=== PATIENT | male | born 1955 | race Caucasian/White ===

== ENCOUNTER 2018-08-10 09:40 | Outpatient (REF) | payer BC, SELFPAY ==
[2018-08-10 13:53] LABS: ALT 28 U/L (12-78); AST 13 U/L (15-37); Albumin 3.6 g/dL (3.4-5.0); Alkaline Phosphatase 52 U/L (46-116); BUN 17 mg/dL (7-18); Bilirubin, Total 0.5 mg/dL (0.2-1.0); CREATININE 1.14 mg/dL (0.70-1.30); Chloride 103 mmol/L (98-107); Cholesterol 191 mg/dL (50-200); Glucose 120 mg/dL (70-100); HDL Cholesterol 38 mg/dL (40-60); LDL CHOLESTEROL 123 mg/dL (<100); Potassium 3.9 mmol/L (3.5-5.1); Sodium 140 mmol/L (136-145); Total Protein 6.5 g/dL (6.4-8.2); Triglyceride 195 mg/dL (30-150)
[2018-08-13 11:14] LABS: PSA, Screening 1.6 ng/ml (0-4.5)
== END 2018-08-10 10:00 ==
LOC: NCHCN 09:40
PROVIDERS: PCP Family Medicine; Visit Provider Family Medicine
DX: Z00.00 Encounter for general adult medical examination without abnormal findings (principal); R73.9 Hyperglycemia, unspecified; E78.1 Pure hyperglyceridemia; I10 Essential (primary) hypertension; Z12.5 Encounter for screening for malignant neoplasm of prostate
CPT/HCPCS: 80053; 80061; 83721; 84153

== ENCOUNTER 2018-09-12 14:36 | Outpatient (CLI) | payer BC, SELFPAY ==
--- NOTE | 2018-09-12 14:33 | DI.RAD_ITS ---
SYMPTOM/DIAGNOSIS: RT SHOULDER PAIN RIGHT SHOULDER: Comparison is made with 23 April 2013. There is spurring at the A-C joint and tip of the acromion as well as glenoid. There is mild spurring at the greater tuberosity. The humeral head appears normally positioned. IMPRESSION: Mild to moderate degenerative changes.
== END 2018-09-12 14:56 ==
PROVIDERS: PCP Family Medicine; Visit Provider Student in an Organized Health Care Education/Training Program
DX: M25.511 Pain in right shoulder (principal); M19.011 Primary osteoarthritis, right shoulder
CPT/HCPCS: 73030

== ENCOUNTER 2018-10-26 11:10 | Outpatient (CLI) | payer BC, SELFPAY ==
--- NOTE | 2018-10-26 10:44 | DI.RAD_ITS ---
SYMPTOM/DIAGNOSIS: COUGH, R05 PA AND LATERAL CHEST: No priors. The heart is normal in size. The lungs are clear. The mediastinal structures and pleura appear intact. CONCLUSION: Normal chest.
== END 2018-10-26 11:30 ==
PROVIDERS: PCP Family Medicine; Visit Provider Nurse Practitioner
DX: R05 Cough (principal)
CPT/HCPCS: 71046

== ENCOUNTER 2018-10-29 15:59 | Outpatient (CLI) | payer BC, SELFPAY ==
[2018-10-29 17:28] LABS: Abs Immature Grans 0.05 k/cumm (0.0-0.09); Absolute Basophil Count 0.05 k/cumm (0.0-0.2); Absolute Eosinophil Count 0.41 k/cumm (0.0-0.7); Absolute Lymphocyte Count 2.12 k/cumm (1.2-3.4); Absolute Monocyte Count 0.65 k/cumm (0.11-0.7); Absolute Neutrophil Count 5.25 k/cumm (1.2-6.7); Basophils % 0.6; Eosinophils % 4.8; HGB 15.7 g/dL (13.5-17.5); Immature Grans % 0.6; Lymphocytes % 24.9; Mean Corp. HGB Concentration 34.9 g/dL (32.0-36.0); Mean Corpuscular Hemoglobin 32.3 pg (27.0-33.0); Mean Corpuscular Volume 92.6 fL (80-95); Mean Platelet Volume 10.1 fL (8.0-11.0); Monocytes % 7.6; Neutrophils % 61.5; Platelet Count 230 x1000/uL (130-400); RBC 4.86 m/cumm (4.50-6.00); RBC Distribution Width 12.5 % (11.8-14.1); White Blood Cell Count 8.53 k/cumm (4.4-10.8)
[2018-10-29 19:37] LABS: D-Dimer 242 ng/mlFEU (<500)
== END 2018-10-29 16:19 ==
PROVIDERS: PCP Family Medicine; Visit Provider Family Medicine
DX: R05 Cough (principal)
CPT/HCPCS: 36415; 85025; 85379

== ENCOUNTER 2018-12-20 01:24 | Outpatient (CLI) | payer BC, SELFPAY ==
--- NOTE | 2018-12-20 07:01 | DI.RAD_ITS ---
SYMPTOMS/DIAGNOSIS: RIGHT ROTATOR CUFF TENDINITIS, M75.81 JOINT INJECTION, RIGHT SHOULDER: Fluoroscopy Time: 4 sec Fluoroscopy was utilized by Dr. Palma during the performance of a right shoulder injection. No images were saved. Please refer to the procedure report for complete details.
--- NOTE | 2018-12-20 10:05 | W.PROCNOTE ---
Date of service: 12/20/18 Time of Service: 10:05 Procedure Note Date of procedure: 12/20/18 Procedure: Right Shoulder Injection Surgeon/Proceduralist/Physician: Quang Palma Procedure Diagnosis: Right Biceps Tendinitis Procedure Indications: Patrice has had persistent pain of the RIGHT shoulder. Noninvasive measures have been tried. To serve as both diagnostic and therapeutic, an injection under fluoroscopy was recommended. I had discussed the risks of the procedure and the patient elected to proceed. Procedure Description: Patrice was greeted in the flouroscopy room. The correct side was identified and the consent was reviewed with the patient and signed. The patient was then placed in the supine position on the fluoroscopy table. The RIGHT shoulder was then prepped with Chloraprep. The anterior injection starting point was identiifed by bony landmarks and fluoroscopy. The skin and soft tissue in the tract of the injection was anesthetized with 1% Lidocaine. A spinal needle was then inserted deep into the shoulder joint at the level of the recess between the glenoid and superior humeral head. A small amount of Omnipaque solution was injected to confirm intraarticular placement. Once confirmed, the shoulder was injected with 4cc of 0.5% Bupivicaine and 80mg of Depo-Medrol. A bandaid was placed on the injection site. The patient tolerated the procedure well and noted improvement in pre-injection pain.
[2018-12-20] MEDS: Omnipaque 300 MG/ML 10 ML BTL IJ (12:08)
[2018-12-20] MEDS: Bupivacaine 0.5% Pres-Free 10 ML VIAL 6 ML IJ (12:09)
[2018-12-20] MEDS: methylPREDNISolone ACETATE 80 MG/ML VIAL IM (12:10)
== END 2018-12-20 01:44 ==
PROVIDERS: PCP Family Medicine; Visit Provider Student in an Organized Health Care Education/Training Program
DX: M25.511 Pain in right shoulder (principal); M75.81 Other shoulder lesions, right shoulder
CPT/HCPCS: 20610; 77002; 76000; J1040

== ENCOUNTER 2019-02-22 10:30 | Outpatient (REF) | payer BC, SELFPAY ==
--- NOTE | 2019-02-22 09:50 | SKI_PTH ---
PATIENT: Patrice Nice LOC: N U#:[id number] AGE/SX: 63/M ROOM: RE02/22/[address]: Sheryl Lee MD : 1955 BED: DIS: 02/22/2019 SPEC #: [id number] RECD: 02/22/19 12:25 STATUS: CHRIS REThomas #: [id number] GEORGI: 02/22/19 09:[address]: Sheryl Lee DEPT: Surgical Specimen RECD BY: Desiree Tim ENTERED: 02/22/19 12:26 SP TYPE: AMADO MARMOLEJO DR: Eugenia Mcclure Tissues: 1 - SKIN CYST/TAG/DEBRIDEMENT Procedures: SKIN BIOPSY LEVEL 3 Comments: [id number]
== END 2019-02-22 10:50 ==
LOC: LBN 10:30
PROVIDERS: PCP Family Medicine; Visit Provider Surgery
DX: L72.0 Epidermal cyst (principal)
CPT/HCPCS: 88304

== ENCOUNTER 2019-04-04 01:03 | Outpatient (CLI) | payer BC, SELFPAY ==
--- NOTE | 2019-04-04 07:12 | DI.RAD_ITS ---
SYMPTOM/DIAGNOSIS: LT HIP INJECTION , PRIMARY OA LT HIP M16.12 LEFT HIP INJECTION : 04/04/19 Fluoroscopy Time: .3 min Left hip injection. Hard copy shows left intra-articular hip injection.
[2019-04-04] MEDS: Omnipaque 300 MG/ML 10 ML BTL IJ (09:58)
[2019-04-04] MEDS: Bupivacaine 0.5% Pres-Free 10 ML VIAL 6 ML IJ (09:59)
[2019-04-04] MEDS: methylPREDNISolone ACETATE 80 MG/ML VIAL IM (10:00)
--- NOTE | 2019-04-05 09:47 | W.PROCNOTE ---
Date of service: 04/04/19 Time of Service: 11:47 Procedure Note Date of procedure: 04/04/19 Procedure: Left Hip Injection with Fluoroscopic Guidance Surgeon/Proceduralist/Physician: Quang Palma Procedure Diagnosis: Left Hip Osteoarthritis Procedure Indications: Patrice has had persistent pain of the LEFT hip and groin. Noninvasive measures have been tried. He had a previous left hip injection which provided significant relief. Therefore, an injection under fluoroscopy was recommended. I had discussed the risks of the procedure and the patient elected to proceed. Procedure Description: Patrice was greeted in the flouroscopy room. The correct side was identified and the consent was reviewed with the patient and signed. The patient was then placed in the supine position on the fluoroscopy table. The LEFT hip was then prepped with Chloraprep. The anterolateral injection starting point was identiifed by bony landmarks and fluoroscopy. The skin and soft tissue in the tract of the injection was anesthetized with 1% Lidocaine. A spinal needle was then inserted deep into the hip joint at the level of the lateral femoral neck under fluoroscopic guidance. A small amount of Omnipaque solution was injected to confirm intraarticular placement. Once confirmed, the hip was injected with 6cc of 0.5% Bupivicaine and 80mg of Depo-Medrol. A bandaid was placed on the injection site. The patient tolerated the procedure well and noted improvement in pre-injection pain.
== END 2019-04-04 01:23 ==
PROVIDERS: PCP Family Medicine; Visit Provider Student in an Organized Health Care Education/Training Program
DX: M16.12 Unilateral primary osteoarthritis, left hip (principal); M25.552 Pain in left hip
CPT/HCPCS: 20610; 77002; J1040

== ENCOUNTER 2019-04-18 00:40 | Outpatient (CLI) | payer BC, SELFPAY ==
--- NOTE | 2019-04-18 07:00 | DI.RAD_ITS ---
SYMPTOM/DIAGNOSIS: RT ROTATOR CUFF TENDINITIS, M75.81, RT SHOULDER INJECTION RIGHT SHOULDER INJECTION: Fluoroscopy Time: 12.4 seconds Fluoroscopy was utilized by Dr Palma during the performance of a right shoulder injection. Please refer to the procedure report for complete details. A single hard copy image shows contrast which confirms an intra-articular location.
--- NOTE | 2019-04-18 09:27 | W.PROCNOTE ---
Date of service: 04/18/19 Time of Service: 09:27 Procedure Note Date of procedure: 04/18/19 Procedure: Right Shoulder Injection Surgeon/Proceduralist/Physician: Quang Palma Procedure Diagnosis: Right Rotator Cuff Tendinitis Procedure Indications: Patrice has had persistent pain of the RIGHT shoulder. Noninvasive measures have been tried. To serve as both diagnostic and therapeutic, an injection under fluoroscopy was recommended. He has had a previous injection with great, longlasting success. I had discussed the risks of the procedure and the patient elected to proceed. Procedure Description: Patrice was greeted in the flouroscopy room. The correct side was identified and the consent was reviewed with the patient and signed. The patient was then placed in the supine position on the fluoroscopy table. The RIGHT shoulder was then prepped with Chloraprep. The anterior injection starting point was identiifed by bony landmarks and fluoroscopy. The skin and soft tissue in the tract of the injection was anesthetized with 1% Lidocaine. A spinal needle was then inserted deep into the shoulder joint at the level of the recess between the glenoid and superior humeral head. A small amount of Omnipaque solution was injected to confirm intraarticular placement. Once confirmed, the shoulder was injected with 4cc of 0.5% Bupivicaine and 80mg of Depo-Medrol. A bandaid was placed on the injection site. The patient tolerated the procedure well and noted improvement in pre-injection pain.
[2019-04-18] MEDS: Omnipaque 300 MG/ML 10 ML BTL IJ (10:39)
[2019-04-18] MEDS: methylPREDNISolone ACETATE 80 MG/ML VIAL IM (10:40)
[2019-04-18] MEDS: Bupivacaine 0.5% Pres-Free 10 ML VIAL 6 ML IJ (10:40)
== END 2019-04-18 01:00 ==
PROVIDERS: PCP Family Medicine; Visit Provider Student in an Organized Health Care Education/Training Program
DX: M75.81 Other shoulder lesions, right shoulder (principal); M25.511 Pain in right shoulder
CPT/HCPCS: 20610; 77002; J1040

== ENCOUNTER 2019-08-14 10:27 | Outpatient (REF) | payer BC, SELFPAY ==
[2019-08-14 13:19] LABS: ALT 38 U/L (16-63); AST 15 U/L (15-37); Albumin 3.8 g/dL (3.4-5.0); Alkaline Phosphatase 53 U/L (46-116); Anion Gap 7.1 mmol/L (3-11); BUN 19 mg/dL (7-18); Bilirubin, Total 0.7 mg/dL (0.2-1.0); CO2 30.9 mmol/L (21.0-32.0); CREATININE 1.03 mg/dL (0.70-1.30); Calculated LDL 120 mg/dL; Chloride 104 mmol/L (98-107); Cholesterol 191 mg/dL (50-200); Glucose 109 mg/dL (70-100); HDL Cholesterol 37 mg/dL (40-60); Potassium 3.7 mmol/L (3.5-5.1); Sodium 142 mmol/L (136-145); Total Protein 6.8 g/dL (6.4-8.2); Triglyceride 174 mg/dL (30-150)
[2019-08-15 11:30] LABS: Hepatitis A Antibody IgM Negative (NEGAT); Hepatitis B Core Antibody Negative (NEGAT); Hepatitis B surface Ag Negative (NEGAT); Hepatitis C Ab w Rflx HCV PCR Negative (NEGAT)
== END 2019-08-14 10:47 ==
LOC: NCHCN 10:27
PROVIDERS: Visit Provider Family Medicine
DX: Z00.00 Encounter for general adult medical examination without abnormal findings (principal); E78.1 Pure hyperglyceridemia; I10 Essential (primary) hypertension; Z12.5 Encounter for screening for malignant neoplasm of prostate; Z11.59 Encounter for screening for other viral diseases
CPT/HCPCS: 80053; 80061; 84153; 86704; 86709; 86803; 87340

== ENCOUNTER 2020-06-25 01:15 | Outpatient (CLI) | payer BC, SELFPAY ==
[2020-06-25] MEDS: Omnipaque 300 MG/ML 10 ML BTL IJ (14:20)
--- NOTE | 2020-06-25 14:20 | DI.RAD_ITS ---
EXAM: RF JOINT INJECTION FLUORO GUID CLINICAL HISTORY: DJD LEFT HIP-INJECTION,OA LT HIP TECHNIQUE: COMPARISON: No exams were available for comparison FINDINGS: Fluoroscopy was utilized by Dr. Palma during left hip injection. Hard copy shows successful hip i njection. Fluoro time, 0.08 seconds IMPRESSION: RADIATION DOSE DELIVERED: Total DLP
[2020-06-25] MEDS: methylPREDNISolone ACETATE 80 MG/ML VIAL IM (14:21)
[2020-06-25] MEDS: Bupivacaine 0.5% Pres-Free 10 ML VIAL 6 ML IJ (14:21)
--- NOTE | 2020-06-25 16:13 | W.PROCNOTE ---
Date of service: 06/25/20 Time of Service: 14:13 Procedure Note Date of procedure: 06/25/20 Procedure: Left Hip Injection with Fluoroscopic Guidance Surgeon/Proceduralist/Physician: Quang Palma Procedure Diagnosis: Left Hip Osteoarthritis Procedure Indications: Patrice has had persistent pain of the LEFT hip and groin. Noninvasive measures have been tried. He has had previous injections to the left hip with excellent results. Therefore, an injection under fluoroscopy was recommended. I had discussed the risks of the procedure and the patient elected to proceed. Procedure Description: Patrice was greeted in the flouroscopy room. The correct side was identified and the consent was reviewed with the patient and signed. The patient was then placed in the supine position on the fluoroscopy table. The LEFT hip was then prepped with Chloraprep. The anterolateral injection starting point was identiifed by bony landmarks and fluoroscopy. The skin and soft tissue in the tract of the injection was anesthetized with 1% Lidocaine. A spinal needle was then inserted deep into the hip joint at the level of the lateral femoral neck under fluoroscopic guidance. A small amount of Omnipaque solution was injected to confirm intraarticular placement. Once confirmed, the hip was injected with 6cc of 0.5% Bupivicaine and 80mg of Depo-Medrol. A bandaid was placed on the injection site. The patient tolerated the procedure well and noted improvement in pre-injection pain.
== END 2020-06-25 01:35 ==
PROVIDERS: PCP Family Medicine; Visit Provider Student in an Organized Health Care Education/Training Program
DX: M16.12 Unilateral primary osteoarthritis, left hip (principal); M25.552 Pain in left hip; R10.32 Left lower quadrant pain
CPT/HCPCS: 20610; 77002; J1040

== ENCOUNTER 2020-08-19 08:52 | Outpatient (REF) | payer BC, SELFPAY ==
[2020-08-19 22:39] LABS: ALT 26 U/L (16-63); AST 13 U/L (15-37); Albumin 3.9 g/dL (3.4-5.0); Alkaline Phosphatase 55 U/L (46-116); Anion Gap 8.9 mmol/L (3-11); BUN 15 mg/dL (7-18); Bilirubin, Total 0.6 mg/dL (0.2-1.0); CO2 28.1 mmol/L (21.0-32.0); CREATININE 1.18 mg/dL (0.70-1.30); Calcium 8.9 mg/dL (8.5-10.1); Calculated LDL 116 mg/dL (<100); Chloride 104 mmol/L (98-107); Cholesterol 181 mg/dL (<200); Glucose 124 mg/dL (74-106); HDL Cholesterol 36 mg/dL (40-60); Potassium 3.8 mmol/L (3.5-5.1); Sodium 141 mmol/L (136-145); Total Protein 6.7 g/dL (6.4-8.2); Triglyceride 148 mg/dL (<150)
[2020-08-24 15:58] LABS: PSA, Screening 2.8 ng/mL (0-4.5)
== END 2020-08-19 09:12 ==
LOC: NCHCN 08:52
PROVIDERS: PCP Family Medicine; Visit Provider Family Medicine
DX: R73.03 Prediabetes (principal); Z00.00 Encounter for general adult medical examination without abnormal findings; E78.1 Pure hyperglyceridemia; I10 Essential (primary) hypertension; E66.3 Overweight
CPT/HCPCS: 80053; 80061; 84153

== ENCOUNTER → 2020-11-05 13:29 | Outpatient (BNVA) | payer MEDICARE, BC, SELFPAY | PROVIDERS: PCP Family Medicine; Referring Provider Family Medicine; Visit Provider Physical Therapy Assistant | DX: Z12.11 Encounter for screening for malignant neoplasm of colon (principal); Z86.010 Personal history of colon polyps ==

== ENCOUNTER 2020-11-19 02:36 | Outpatient (CLI) | payer MEDICARE, BC, SELFPAY ==
[2020-11-20 13:18] LABS: COVID-19 RT-PCR UVMMC Result Negative (Negative)
== END 2020-11-19 02:37 | disposition home or self-care (01) ==
PROVIDERS: PCP Family Medicine; Visit Provider Surgery
DX: Z20.822 Contact with and (suspected) exposure to COVID-19 (principal); Z01.818 Encounter for other preprocedural examination
CPT/HCPCS: U0003; U0005

== ENCOUNTER 2020-11-23 07:11 | Day surgery (SDC) | payer MEDICARE, BC, SELFPAY ==
--- NOTE | 2020-11-23 06:46 | COLE_ITS ---
Date of service: 11/23/20 Time of Service: 08:32 Colonoscopy Report Date of procedure: 11/23/20 Pre-op diagnosis general: Hx of colon polyps Post-op diagnosis procedure note: same (10 polyps and diverticulosis) Procedure: Colonoscopy with polypectomy Surgeon: Sheryl eLe Anesthesia proc note operative: other (General/ASA 2/Erasto Hogan, DONNA) Estimated blood loss (mL): 5 Pathology: other (Ascending polyps x2, transverse polyp x5, descending polyp x2, sigmoid polyp) Complications: None Disposition: same day Indications: The patient is here for Colonoscopy pre-op. His last screening was in 2017, which was remarkable for tubular adenomatous polyps x 5 and tubulovillious x 1. He has no family history of colon cancer. He has not had any bowel habit changes. -Discussed colonoscopy bowel prep as well as the procedure. Discussed possible complications of the procedure to include bleeding, pain, perforation, missed small lesion/polyp, sore throat, aspiration and adverse reaction to the medications. Questions were answered to patient?s satisfaction. No guarantees were implied or given. I spent 32 minutes in reviewing the record, seeing the patient, providing patient education, answering patient's questions and documenting in the medical record. He will hold his aspirin, Aleve, ibuprofen, and calcium x 5 days prior to his procedure. P// Colonoscopy under sedation Prep: Miralax/Dulcolax Procedure Start Time: 08:32 Procedure End Time: 09:44 Retraction Time: 60 minutes Findings: Multiple flat and pedunculated polyps throughout his large bowel moderate sigmoid diverticulosis Procedure Description: After informed consent was obtained the patient was taken to the procedure room and placed in a left decubitous position. Monitors were applied and a time out was done. The patients name, date of , proce dure, allergies to medications and metal in their body was reviewed. The patient was then sedated. Once sedated and comfortable a rectal exam was done. External exam was normal. Internal exam revealed a normal sphincter tone and no palpable masses. The prostate felt smooth. The scope was then introduced and retro-flexed. No internal hemorrhoids, polyps or masses were identified on retro-flexion. The scope was then advanced to the cecum without difficulty. The ileocecal vlave and appendiceal orifice were identified. The prep was adequate. The scope was then slowly retracted over 60 minutes back into the rectum. Polyps were removed with cold forceps in the ascending colon, Transverse colon, descending colon, and sigmoid colon. Polyps were removed x3 with hot snare in the Transverse colon polyp. There was moderate diverticulosis in the sigmoid colon noted. The scope was removed and the patient was woken up and taken back to Same day surgery in stable condition. The patient tolerated the procedure well and there were no immediate complications. Follow up: The patient should follow up in 3 years unless they develop changes in bowel habits or other new gastrointestinal complaints.
--- NOTE | 2020-11-23 06:47 | W.PM.DSUDISC ---
Discharge Plan Disposition Patient Disposition: HOME Condition: Good Discharge Details Reason For Visit: Colonoscopy Attending Provider: Sheryl Lee Primary Care Provider: Eugenia Mcclure Home Meds and New Rx's Prescriptions: Continued losartan 100 mg tablet 100 mg PO DAILY RF: 0 glucosamine-chondroitin 900 mg tablet 900 mg PO DAILY RF: 0 hydrochlorothiazide 25 MG tablet 25 mg PO DAILY RF: 0 naproxen sodium [Aleve] 220 MG tablet 440 mg PO Q12H PRN RF: 0 sildenafil [Viagra] 100 MG tablet 100 mg PO PRN PRNRF: 0 ibuprofen 200 mg tablet 200 mg PO Q6H PRNRF: 0 diphenhydramine-acetaminophen [Tylenol PM Extra Strength] 25-500 mg tablet 1 tab PO QHS PRNRF: 0 melatonin 5 mg capsule 5 mg PO PRN RF: 0 calcium carbonate 600 mg calcium (1,500 mg) tablet 600 mg PO DAILY RF: 0 aspirin [Aspir-81] 81 MG tablet,delayed release (DR/EC) 81 mg PO DAILY RF: 0 calcium carbonate-vitamin D3 [Calcium 600 with Vitamin D3] 1 EACH capsule 1 cap PO DAILY RF: 0 Discontinued polyethylene glycol 3350 17 gram/dose powder 238 g PO ONCE Qty: 238 RF: 0 bisacodyl [Dulcolax (bisacodyl)] 5 mg tablet,delayed release (DR/EC) 5 mg PO ONCE Qty: 4 RF: 0 Discharge Instructions Instructions: Colorectal Polyps (DC), Diverticulosis (DC) Additional Instructions: Findings: 10 polyps diverticulosis Follow up: 3 years Please call if you develop: fevers >101.5 Nausea or Vomiting Abdominal pain that is not transient DAY SURGERY UNIT POST ENDOSCOPY INSTRUCTIONS 1. Because there will be medication in your system for the next 24 hours, you may feel a little sleepy. Your coordination will be affected. Therefore: a. Do not drive or operate dangerous equipment for 24 hours. b. Do not drink alcohol beverages for 24 hours (not even beer). c. Plan to go home and rest for the day. 2. Generally there are no restrictions on your activity after a day or so has gone by, but you may feel a bit fatigued for a few days. 3 After you arrive home you may have a light meal and return to a normal diet as you can tolerate it without feeling sick to your stomach. 4. After surgery, you may feel pain or discomfort. This should be only transient, but if it persists please contact your doctor. 5. If there are any questions regarding the findings of your procedure, please feel free to contact your doctor. 6. If you are unable to contact your doctor with a problem, contact the hospital at [phone]. 7. Continue all your regular medications unless directed otherwise. I understand the above instructions and have no questions. Signature of Patient or Responsible Adult Escort Date/Time Name of Responsible Adult Escort Signature of Nurse Date/Time Activity:: Activity as Tolerated Diet:: High Fiber diet Discharge Orders Discharge Orders: Discharge Order (Routine); Ordered 11/23/20 Ordered By: Sheryl Lee
[2020-11-23 07:36] VITALS: BP 125/80; PULSE 84; RESP 16; TEMP 36.4; O2SAT 94
[2020-11-23] MEDS: Lactated Ringers 1,000 ML 80 ML IV (07:49)
--- NOTE | 2020-11-23 08:35 | BOWEL_PTH ---
PATIENT: Patrice Nice LOC: [facility] U#:[id number] AGE/SX: 65/M ROOM: RE11/23/[address]: Sheryl Lee MD : 1955 BED: DIS: 11/23/2020 SPEC #: [id number] RECD: 11/23/20 12:49 STATUS: CHRIS REQ #: [id number] GEORGI: 11/23/20 08:[address]: Sheryl Lee DEPT: Surgical Specimen RECD BY: Marisela Cedillo ENTERED: 11/23/20 12:53 SP TYPE: Bowel OTHR DR: Eugenia Mcclure Tissues: 1 - BIOPSY BOWEL 2 - BIOPSY BOWEL 3 - BIOPSY BOWEL 4 - BIOPSY BOWEL 5 - BIOPSY BOWEL Procedures: GROSS AND MICRO LEVEL 4 Comments: [id number]
[2020-11-23 10:16] VITALS: BP 120/73; PULSE 66; RESP 18; TEMP 36.7; O2SAT 95
== END 2020-11-23 11:10 | disposition home or self-care (01) ==
LOC: SUR 07:12
PROVIDERS: PCP Family Medicine; Visit Provider Surgery
PROC: 0DJD8ZZ Inspection of Lower Intestinal Tract, Via Natural or Artificial Opening Endoscopic (ICD-10-PCS; CPT 45378; principal; 2020-11-23 08:00)
DX: Z12.11 Encounter for screening for malignant neoplasm of colon (principal); Z86.010 Personal history of colon polyps; K57.30 Diverticulosis of large intestine without perforation or abscess without bleeding; D12.3 Benign neoplasm of transverse colon; D12.4 Benign neoplasm of descending colon
CPT/HCPCS: 45385; 45380; 88305; J2704

== ENCOUNTER 2021-09-08 17:36 | Outpatient (REF) | payer MEDICARE, BC, SELFPAY ==
[2021-09-08 22:45] LABS: ALT 26 U/L (16-63); AST 12 U/L (15-37); Albumin 3.8 g/dL (3.4-5.0); Alkaline Phosphatase 56 U/L (46-116); Anion Gap 6.4 mmol/L (3-11); BUN 20 mg/dL (7-18); Bilirubin, Total 0.6 mg/dL (0.2-1.0); CO2 31.6 mmol/L (21.0-32.0); Calcium 8.6 mg/dL (8.5-10.1); Calculated LDL 107 mg/dL (<100); Chloride 103 mmol/L (98-107); Cholesterol 179 mg/dL (<200); Glucose 84 mg/dL (74-106); HDL Cholesterol 46 mg/dL (40-60); Sodium 141 mmol/L (136-145); Total Protein 6.7 g/dL (6.4-8.2); Triglyceride 134 mg/dL (<150)
[2021-09-09 18:41] LABS: PSA, Screening 8.1 ng/mL (0.0-4.5)
== END 2021-09-08 17:37 | disposition home or self-care (01) ==
LOC: NCHCN 17:36
PROVIDERS: PCP Family Medicine; Visit Provider Family Medicine
DX: Z12.5 Encounter for screening for malignant neoplasm of prostate (principal); I10 Essential (primary) hypertension; R73.03 Prediabetes
CPT/HCPCS: 80053; 80061; 84153

== ENCOUNTER 2021-09-09 16:15 | Outpatient (REF) | payer MEDICARE, BC, SELFPAY ==
[2021-09-10 13:08] LABS: COVID-19 RT-PCR UVMMC Result Negative (Negative)
== END 2021-09-09 16:16 | disposition home or self-care (01) ==
LOC: NCHCN 16:15
PROVIDERS: PCP Family Medicine; Visit Provider Family Medicine
DX: Z20.822 Contact with and (suspected) exposure to COVID-19 (principal); R05.8 Other specified cough
CPT/HCPCS: U0003; U0005

== ENCOUNTER → 2021-09-14 10:54 | Outpatient (BNVA) | payer MEDICARE, BC, SELFPAY | PROVIDERS: PCP Family Medicine; Referring Provider Family Medicine; Visit Provider Urology | DX: R39.89 Other symptoms and signs involving the genitourinary system (principal); R97.20 Elevated prostate specific antigen [PSA] | CPT/HCPCS: 99214 ==

== ENCOUNTER 2021-09-24 03:20 | Outpatient (CLI) | payer MEDICARE, BC, SELFPAY ==
[2021-09-24 17:59] LABS: PSA, Diagnostic 4.3 ng/mL (0.0-4.5)
== END 2021-09-24 03:21 | disposition home or self-care (01) ==
LOC: LBO 03:21
PROVIDERS: PCP Family Medicine; Visit Provider Urology
DX: R97.20 Elevated prostate specific antigen [PSA] (principal)
CPT/HCPCS: 84153

== ENCOUNTER 2022-03-09 18:49 | Outpatient (REF) | payer MEDICARE, SELFPAY ==
[2022-03-09 22:15] LABS: PSA, Diagnostic 3.8 ng/mL (<=4.5)
== END 2022-03-09 18:50 | disposition home or self-care (01) ==
LOC: NCHCN 18:49
PROVIDERS: PCP Family Medicine; Visit Provider Family Medicine
DX: R97.20 Elevated prostate specific antigen [PSA] (principal)
CPT/HCPCS: 84153

== ENCOUNTER → 2022-03-22 10:20 | Outpatient (BNVA) | payer MEDICARE, SELFPAY | PROVIDERS: PCP Family Medicine; Referring Provider Family Medicine; Visit Provider Urology | DX: R35.1 Nocturia (principal); N52.9 Male erectile dysfunction, unspecified; R97.20 Elevated prostate specific antigen [PSA] | CPT/HCPCS: 99214 ==

== ENCOUNTER → 2022-07-07 03:36 | Outpatient (CLI) | payer MEDICARE, SELFPAY ==
--- NOTE | 2022-07-07 08:30 | DI.RAD_ITS ---
Exam(s) RF JOINT INJECTION FLUORO GUID EXAM: RF JOINT INJECTION FLUORO GUID CLINICAL HISTORY: LEFT HIP inj under fluoro, primary oa, m16.12, pain TECHNIQUE: 2D and realtime digital imaging was performed. CONTRAST MATERIAL: Water soluble contrast was administered. COMPARISON: No exams were available for comparison FINDINGS: Fluoroscopy was provided for Dr. Palma during the performance of a left hip inject. Please refer to the procedure report for complete details. IMPRESSION: RADIATION DOSE DELIVERED: marcio Herrmann=17.6 mGy
[2022-07-07] MEDS: methylPREDNISolone ACETATE 80 MG/ML VIAL IM (15:28)
[2022-07-07] MEDS: Bupivacaine 0.5% Pres-Free 10 ML VIAL IJ (15:30)
[2022-07-07] MEDS: Omnipaque 300 MG/ML 10 ML BTL IJ (15:33)
--- NOTE | 2022-07-07 20:45 | W.PROCNOTE ---
Date of service: 07/07/22 Time of Service: 15:00 Procedure Note Date of procedure: 07/07/22 Procedure: Left Hip Injection with Fluoroscopic Guidance Surgeon/Proceduralist/Physician: Quang Palma Procedure Diagnosis: Left Hip Osteoarthritis Procedure Indications: Patrice has had persistent pain of the LEFT hip and groin. Noninvasive measures have been tried. To serve as both diagnostic and therapeutic, an injection under fluoroscopy was recommended. I had discussed the risks of the procedure and the patient elected to proceed. Procedure Description: Patrice was greeted in the flouroscopy room. The correct side was identified and the consent was reviewed with the patient and signed. The patient was then placed in the supine position on the fluoroscopy table. The LEFT hip was then prepped with Chloraprep. The anterolateral injection starting point was identiifed by bony landmarks and fluoroscopy. The skin and soft tissue in the tract of the injection was anesthetized with 1% Lidocaine. A spinal needle was then inserted deep into the hip joint at the level of the lateral femoral neck under fluoroscopic guidance. A small amount of Omnipaque solution was injected to confirm intraarticular placement. Once confirmed, the hip was injected with 5cc of 0.5% Bupivicaine and 80mg of Depo-Medrol. A bandaid was placed on the injection site. The patient tolerated the procedure well and noted improvement in pre-injection pain.
== END ==
PROVIDERS: PCP Family Medicine; Visit Provider Student in an Organized Health Care Education/Training Program
DX: M16.12 Unilateral primary osteoarthritis, left hip (principal); M25.552 Pain in left hip
CPT/HCPCS: 20610; 77002; J1040

== ENCOUNTER → 2022-08-29 11:34 | Outpatient (BNVA) | payer MEDICARE, SELFPAY | PROVIDERS: PCP Family Medicine; Referring Provider Family Medicine; Visit Provider Urology | DX: N52.9 Male erectile dysfunction, unspecified (principal) | CPT/HCPCS: 54235 ==

== ENCOUNTER → 2022-10-11 15:56 | Outpatient (BNVA) | payer MEDICARE, SELFPAY | PROVIDERS: PCP Family Medicine; Referring Provider Family Medicine; Visit Provider Urology | DX: N52.9 Male erectile dysfunction, unspecified (principal) | CPT/HCPCS: 99443 ==

== ENCOUNTER 2022-10-14 02:49 | Outpatient (CLI) | payer MEDICARE, SELFPAY ==
[2022-10-14 09:40] LABS: ALT 20 U/L (16-63); AST 14 U/L (15-37); Albumin 4.2 g/dL (3.4-5.0); Alkaline Phosphatase 50 U/L (46-116); Anion Gap 7.1 mmol/L (3-11); BUN 15 mg/dL (7-18); CO2 31.9 mmol/L (21.0-32.0); CREATININE 1.1 mg/dL (0.70-1.30); Calculated LDL 108 mg/dL (<100); Chloride 103 mmol/L (98-107); Cholesterol 172 mg/dL (<200); Estimated GFR 73.58 (mL/min/1.73m2); Glucose 103 mg/dL (74-106); HDL Cholesterol 42 mg/dL (40-60); Potassium 3.8 mmol/L (3.5-5.1); Sodium 142 mmol/L (136-145); Total Protein 7.4 g/dL (6.4-8.2); Triglyceride 110 mg/dL (<150)
== END 2022-10-14 02:50 | disposition home or self-care (01) ==
PROVIDERS: PCP Family Medicine; Visit Provider Family Medicine
DX: E78.1 Pure hyperglyceridemia (principal); R97.20 Elevated prostate specific antigen [PSA]; I10 Essential (primary) hypertension; Z12.5 Encounter for screening for malignant neoplasm of prostate
CPT/HCPCS: 36415; 80053; 80061; 84153

== ENCOUNTER 2022-10-31 11:25 | Outpatient (REF) | payer MEDICARE, SELFPAY ==
--- NOTE | 2022-10-31 10:50 | BOWEL_PTH ---
PATIENT: Patrice Nice LOC: [facility] U#:[id number] AGE/SX: 67/M ROOM: RE10/31/[address]: Andrea Hamlin : 1955 BED: DIS: 10/31/2022 SPEC #: [id number] RECD: 10/31/22 17:14 STATUS: CHRIS REQ #: [id number] GEORGI: 10/31/22 10:[address]: Andrea Hamlin DEPT: Surgical Specimen RECD BY: Marisela Cedillo ENTERED: 10/31/22 17:14 SP TYPE: Bowel OTHR DR: Eugenia Mcclure Tissues: 1 - BIOPSY BOWEL Procedures: SKIN LEVEL 4 Comments: [id number]
== END 2022-10-31 11:26 | disposition home or self-care (01) ==
LOC: NCHCN 11:25
PROVIDERS: PCP Family Medicine; Visit Provider Family Medicine
DX: C44.319 Basal cell carcinoma of skin of other parts of face (principal)
CPT/HCPCS: 88305

== ENCOUNTER → 2022-11-28 12:27 | Outpatient (BNVA) | payer MEDICARE, SELFPAY | PROVIDERS: PCP Family Medicine; Referring Provider Family Medicine; Visit Provider Urology | DX: N52.9 Male erectile dysfunction, unspecified (principal); N40.1 Benign prostatic hyperplasia with lower urinary tract symptoms; N13.8 Other obstructive and reflux uropathy | CPT/HCPCS: 99442 ==

== ENCOUNTER 2023-02-21 02:44 | Outpatient (CLI) | payer MEDICARE, SELFPAY ==
[2023-02-21 19:57] LABS: PSA, Diagnostic 4.2 ng/mL (<=4.5)
== END 2023-02-21 02:45 | disposition home or self-care (01) ==
LOC: LBO 02:44
PROVIDERS: PCP Family Medicine; Visit Provider Urology
DX: R97.20 Elevated prostate specific antigen [PSA] (principal)
CPT/HCPCS: 36415; 84153

== ENCOUNTER → 2023-02-28 10:19 | Outpatient (BNVA) | payer MEDICARE, SELFPAY | PROVIDERS: PCP Family Medicine; Referring Provider Family Medicine; Visit Provider Urology | DX: R97.20 Elevated prostate specific antigen [PSA] (principal); N52.9 Male erectile dysfunction, unspecified | CPT/HCPCS: 99214 ==

== ENCOUNTER → 2023-08-17 14:05 | Outpatient (BNVA) | payer MEDICARE, SELFPAY | PROVIDERS: PCP Family Medicine; Referring Provider Family Medicine; Visit Provider Student in an Organized Health Care Education/Training Program | DX: M16.12 Unilateral primary osteoarthritis, left hip (principal) | CPT/HCPCS: 20611; J1040 ==

== ENCOUNTER 2023-10-19 12:50 | Outpatient (REF) | payer MEDICARE, SELFPAY ==
[2023-10-19 14:38] LABS: HCT 45.8 % (40.0-50.0); HGB 15.7 g/dL (13.5-17.5); MCH 32.2 pg (27.0-33.0); MCHC 34.3 % (32.0-36.0); MCV 94 fL (80-95); Platelet Count 201 10^3/uL (130-400); RBC 4.87 10^6/uL (4.36-5.78); RDW 11.5 % (11.8-14.1); RDW-SD 39.8 fL; WBC 5.88 10^3/uL (4.4-10.8)
[2023-10-19 14:41] LABS: ALT 19 U/L (16-63); AST 10 U/L (15-37); Albumin 4.1 g/dL (3.4-5.0); Alkaline Phosphatase 52 U/L (46-116); Anion Gap 4.8 mmol/L (3-11); BUN 19 mg/dL (7-18); Bilirubin, Total 0.9 mg/dL (0.2-1.0); CO2 31.2 mmol/L (21.0-32.0); Calcium 9.3 mg/dL (8.5-10.1); Calculated LDL 122 mg/dL (<100); Chloride 105 mmol/L (98-107); Cholesterol 190 mg/dL (<200); Estimated GFR 81.98 (mL/min/1.73m2); Glucose 101 mg/dL (74-106); HDL Cholesterol 47 mg/dL (40-60); Potassium 4.6 mmol/L (3.5-5.1); Sodium 141 mmol/L (136-145); Total Protein 7.1 g/dL (6.4-8.2); Triglyceride 105 mg/dL (<150)
[2023-10-20 19:09] LABS: PSA, Diagnostic 3.9 ng/mL (<=4.5)
== END 2023-10-19 12:51 | disposition home or self-care (01) ==
LOC: NCHCN 12:50
PROVIDERS: PCP Family Medicine; Visit Provider Family Medicine
DX: Z00.00 Encounter for general adult medical examination without abnormal findings (principal); E29.1 Testicular hypofunction
CPT/HCPCS: 80053; 80061; 85027; 84153

== ENCOUNTER 2023-11-16 17:14 | Outpatient (REF) | payer MEDICARE, SELFPAY ==
--- NOTE | 2023-11-16 14:30 | SKI_PTH ---
PATIENT: Patrice Nice [facility] [address] U#:[id number] AGE/SX: 68/M ROOM: RE11/16/[address]: Andrea Hamlin : 1955 BED: DIS: 11/16/2023 SPEC #: [id number] RECD: 11/16/23 17:25 STATUS: CHRIS REThomas #: [id number] GEORGI: 11/16/23 14:[address]: Andrea Hamlin DEPT: Surgical Specimen RECD BY: Marisela Cedillo Tissues: 1 - SKIN BIOPSY(SHAVE/PUNCH) Procedures: SKIN LEVEL 4 Comments: [id number]
== END 2023-11-16 17:15 | disposition home or self-care (01) ==
LOC: NCHCN 17:14
PROVIDERS: PCP Family Medicine; Visit Provider Family Medicine
DX: Z00.00 Encounter for general adult medical examination without abnormal findings (principal); E29.1 Testicular hypofunction; I10 Essential (primary) hypertension
CPT/HCPCS: 88305

== ENCOUNTER → 2023-12-28 09:43 | Outpatient (BNVA) | payer MEDICARE, SELFPAY | PROVIDERS: PCP Family Medicine; Referring Provider Family Medicine; Visit Provider Physical Therapy Assistant | DX: Z12.11 Encounter for screening for malignant neoplasm of colon (principal); Z86.010 Personal history of colon polyps ==

== ENCOUNTER 2024-01-04 09:05 | Day surgery (SDC) | payer MEDICARE, SELFPAY ==
--- NOTE | 2024-01-03 18:23 | W.ANESPRE ---
General Info Date of Service Date Performed: 01/04/24 Height: 6 ft 1 in Weight: 108.862 kg Body Mass Index (BMI): 31.6 Surgical Procedure: Operation Date: 01/04/24 10:35 Proposed Procedure Side Surgeon steven Talbert MD Meds Allergies and Home Medications Allergies Allergy/AdvReac Type Severity Reaction Status Date / Time No Known Allergies Allergy Verified 01/04/24 09:19 Home Medication Medication Instructions Recorded sildenafil 100 mg tablet (Viagra) 100 mg PO PRN PRN 08/16/17 calcium carbonate 600 mg calcium 600 mg PO DAILY 09/18/20 (1,500 mg) tablet diphenhydramine 25 1 tab PO QHS PRN 09/18/20 mg-acetaminophen 500 mg tablet (Tylenol PM Extra Strength) ibuprofen 200 mg tablet 200 mg PO Q6H PRN 09/18/20 melatonin 5 mg capsule 5 mg PO PRN 09/18/20 valsartan 40 mg tablet 40 mg PO DAILY 09/14/21 quadmix 1 ml intra-cavernosal DAILY PRN 02/28/23 erectile dysfunction #5 mL tamsulosin 0.4 mg capsule (Flomax) 0.8 mg (2 x 0.4 mg) PO DAILY #180 11/27/23 caps Current Visit Medications: Current Medications Generic Name Dose Route Start Last Admin Trade Name Freq PRN Reason Stop Dose Admin Ringer's Solution 1,000 mls @ 80 mls/hr 01/04/24 06:00 IV 02/02/24 23:59 INFUSION ALIA IV Miscellaneous Supplies 1 each 01/04/24 06:00 Iv Access IV 02/02/24 23:59 DIRECTED ALIA Sodium Chloride 0 ml 01/04/24 06:00 Normal Saline Flush 10 Ml Syr IV 02/02/24 23:59 PRN PRN Sodium Chloride 0 ml 01/04/24 06:00 Normal Saline 10 Ml Vial IJ 02/02/24 23:59 DIRECTED PRN Sterile Water 0 ml 01/04/24 06:00 Water,Injection,Sterile 10 Ml Vial IJ 02/02/24 23:59 DIRECTED PRN PFSH Active Problems Active Problems: Problem Status Onset Code Tubular adenoma ~11/2020 D36.9 History of excision of lesion Z98.890, Z87.2 Sebaceous cyst L72.3 Right rotator cuff tendinitis M75.81 Primary osteoarthritis of left hip 02/07/18 M16.12 Polyp of colon 07/12/17 K63.5 Medical History Medical History Erectile dysfunction Trigger finger Knee pain Prediabetes Obesity BPH w urinary obs/LUTS Elevated PSA Breast lump or mass Actinic keratosis Hypertriglyceridemia Tubulovillous adenoma Hypogonadism Overweight Blood glucose elevated HTN (hypertension) Surgical History Surgical History Colonoscopy - MAC (07/05/17) Cholecystectomy Tobacco Smoking/Tobacco Use Status: Current-Occasional Tobacco Type: cigars Smokeless tobacco user: other Alcohol Alcohol Intake: current Alcohol intake frequency: 0-2 drinks per day Alcohol type: beer, wine and hard liquor Substance Use Substance use: Never Substance use type: does not use Vital Signs and Lab Results Vital Signs Most Recent Vital Signs in EMR: Temp Pulse Resp BP Pulse Ox 36.7 C 60 18 162/96 H 98 01/04/24 09:08 01/04/24 09:08 01/04/24 09:08 01/04/24 09:33 01/04/24 09:08 Lab Results Blood Type / Crossmatch: No Data to Display Complete Blood Count: No Data to Display Complete Metabolic Panel: No Data to Display Liver Function Panel: No Data to Display Coagulation Panel: No Data to Display Cardiac Panel: No Data to Display Arterial Blood Gas: No Data to Display Venous Blood Gas: No Data to Display Pancreas Panel: No Data to Display Thyroid Panel: No Data to Display Infectious Disease: No Data to Display Blood Cultures: No Data to Display Toxicology Panel: No Data to Display Imaging and Studies Imaging and Studies Study information below may be from another EMR and interpreted by another provider. Please see original notes in EMR for more complete details. Stress Test Summary: 01/22: LVEF 48%. no defects. Anesthesia Assessment and Plan Anesthesia History Personal History: No History of Anesthesia Complications Family History: No Family History of Anesthesia Complications Exercise Tolerance Exercise Tolerance: Metabolic Equivalents>4 Cardiac & Pulmonary Exam Cardiac Exam: Normal S1/S2 Heart Sounds Pulmonary Exam: Clear Bilateral Breath Sounds Implantable Cardiac Device Does patient have a Pacemaker or an ICD?: No Airway Exam Known Difficult Airway: No Mallampati Class: 3 Mouth Opening: Normal (> 3cm) Thyromental Distance: Greater than 3 cm Neck Range of Motion: Full ROM Neck Circumference: Normal Teeth Condition: Normal Dentition ASA Classification ASA Score: ASA 2 Emergency Case?: No NPO Status NPO Status: NPO Clears >2 hours, Solids >8 hours Anesthesia Plan Resuscitation Status: Full Code Anesthesia Technique: General Anesthesia Airway Planned: Natural Airway Monitors Used: Standard Monitors Preoperative Comments:: 68 yo male for colo. Sig PMHx: HTN, preDM, occ cigars, occ EtOH. Previous Anes: - colo, prop, natural airway, no issues. - palm fac, prop, fent, natural airway, no issues.
--- NOTE | 2024-01-03 18:41 | W.PM.DSUDISC ---
Date of service: 01/04/24 Time of Service: 11:27 Discharge Plan Disposition Patient Disposition: Home Condition: Good Discharge Details Reason For Visit: screening colonoscopy Attending Provider: Barry Talbert Primary Care Provider: Andrea Hamlin Home Meds and New Rx's Prescriptions: Continued valsartan 40 mg tablet 40 mg PO DAILY quadmix 1 ml intra-cavernosal DAILY MDD 1 mL PRN (Reason: erectile dysfunction) Qty: 5 12RF Rx Instructions: Alprostadil 40 mcg/Papaverine 30 mg/Phentolamine 2 mg/Atropine 0.2 mg per mL sildenafil [Viagra] 100 MG tablet 100 mg PO PRN PRN ibuprofen 200 mg tablet 200 mg PO Q6H PRN diphenhydramine-acetaminophen [Tylenol PM Extra Strength] 25-500 mg tablet 1 tab PO QHS PRN melatonin 5 mg capsule 5 mg PO PRN calcium carbonate 600 mg calcium (1,500 mg) tablet 600 mg PO DAILY Patient Comments: pt reports not taking it tamsulosin [Flomax] 0.4 mg capsule 0.8 mg PO DAILY Qty: 180 4RF Discontinued bisacodyl [Dulcolax (bisacodyl)] 5 mg tablet,delayed release (DR/EC) 5 mg PO ONCE Qty: 4 0RF Rx Instructions: Colonoscopy Bowel Prep- Per Instructions polyethylene glycol 3350 17 gram/dose powder 238 g PO ONCE Qty: 238 0RF Rx Instructions: Colonoscopy Bowel Prep- Per Instructions Discharge Instructions Instructions: Diverticulosis (DC), Colorectal Polyps (GEN), Diverticulitis Diet (GEN) Additional Instructions: Patrice, I was able to complete your colonoscopy today without any difficulty. I did find a total of 7 polyps. I removed these all. To the naked eye, none of them have particularly worrisome features. All of these polyps will be tested by the pathologist, and once we know the nature of the polyps, the office will be in touch with recommendations for your next colonoscopy. If you have any questions in the meantime, please do not hesitate to call or ask at any point. 1. If tolerated, consume a soft, low fiber diet for 1-2 days. 2[address] Do not drive, drink alcohol, operate machinery, make critical decisions, or do activities that require coordination or balance for 24 hours. 3. Because air was put into your colon during the procedure, expelling air from your rectum (passing gas or farting) is normal. 4. You may not have a bowel movement for 1-3 days because of the colonoscopy prep. This is normal. 5. Go directly to the emergency room if you notice any of the following: Develop chills (warm to touch), or if you have a thermometer and your temperature is above 101 Difficulty breathing or difficultly swallowing Persistent vomiting Severe abdominal pain, other than gas cramps Severe chest pain Black, tarry stools Any bleeding ? exceeding one tablespoon 6. Call your physician if the site where your intravenous was started becomes red, swollen, painful, and warm to touch. 7. Your physician has reviewed your pre-procedure medications. Please continue to take those medications as previously ordered. You will be given specific information/education regarding any changes to your medications before leaving. Stand Alone Forms: Anesthesia Discharge Inst., Leatha Tavares (DSU) Activity:: Activity as Tolerated Diet:: As Tolerated Discharge Orders Discharge Orders: Discharge Order (Routine); Ordered 01/03/24 Ordered By: Barry Talbert DS: Diagnosis Discharge Diagnosis (1) Encounter for screening colonoscopy: Status: Acute Asessment and Plan: Follow-up on polypectomy results
--- NOTE | 2024-01-03 18:42 | COLE_ITS ---
Date of service: 01/04/24 Time of Service: : Colonoscopy Report Date of procedure: 01/04/24 Pre-op diagnosis general: screening colonoscopy Post-op diagnosis procedure note: other (Colorectal polyps) Procedure: colonoscopy with polypectomy Surgeon: Barry Talbert Anesthesia Type: General:No Airway Estimated blood loss (mL): 10 Pathology: other (Rectal polyps x 3, 0.5 cm polyp at 70 cm, 0.25 cm polyp at 65 cm, 0.25 cm polyp at 60 cm, 0.25 cm polyp at 35 cm) Complications: None Disposition: same day Indications: Patrice is a 68 year old man with a history of adenomatous polyps. He needs his next screening colonoscopy Prep: Miralax/Dulcolax Procedure Start Time: 10:52 Procedure End Time: 11:17 Retraction Time: 1100 Findings: Diverticulosis,Rectal polyps x 3, 0.5 cm polyp at 70 cm, 0.25 cm polyp at 65 cm, 0.25 cm polyp at 60 cm, 0.25 cm polyp at 35 cm Procedure Description: After the induction of monitored anesthetic care, and with the patient in left lateral decubitus position, I began by performing an external anorectal exam.? Perineum and skin were normal, as was the anal verge.? There was no evidence of external hemorrhoids.? Next, I performed a digital rectal exam.? I did not appreciate any abnormal findings.? Next, I advanced a colonoscope into the rectal vault.? I performed retroflexion.? This appeared normal. In the midportion of the rectal vault was a small cluster of polyps. Each was less than 0.25 cm. Narrowband imaging was used to assist with analysis. These polyps were removed with cold forceps without any significant bleeding.? Using insufflation, I then advanced the colonoscope beyond the rectal folds and into the sigmoid colon before advancing towards the cecum.? There were some occasional sigmoid diverticuli.? The scope was noted to be in the cecum by identification of the ileocecal valve and appendiceal orifice.? I then began withdrawing the colonoscope using repeated irrigation as necessary for full evaluation of the colonic mucosa. Around 70 cm from the anal verge was a 0.5 cm flat polyp. Narrowband imaging was used to help with visualization. The polyp was removed with cold forceps without any issue. I also found polyps at 65, 60, and 35 cm from the anal verge. All of these polyps were just about 0.25 cm. All were flat. All of these were removed with cold forceps. Once the scope was withdrawn to the level of the rectum, great care was taken to examine portions of the rectal folds. No other abnormalities were appreciated.? Finally, the scope was withdrawn and the patient was brought to the same-day surgery recovery unit as the anesthetic wore off. ?The findings and instructions were shared with the patient prior to discharge. [place] Bowel Prep [place] Bowel Prep Right Colon: 3 Left Colon: 3 Transverse Colon: 3 Total Score: 9
[2024-01-04 09:08] VITALS: BP 172/99; PULSE 60; RESP 18; TEMP 36.7; O2SAT 98
[2024-01-04] MEDS: Lactated Ringers 1,000 ML 80 ML IV (09:29)
[2024-01-04 09:33] VITALS: BP 162/96
[2024-01-04 10:17] VITALS: BMI 31.6
--- NOTE | 2024-01-04 10:53 | BOWEL_PTH ---
PATIENT: Patrice Nice LOC: [facility] U#:[id number] AGE/SX: 68/M ROOM: RE01/04/[address]: Barry Talbert MD : [id number] BED: DIS: 01/04/2024 SPEC #: [id number] RECD: 01/04/24 12:58 STATUS: CHRIS REQ #: [id number] GEORGI: 01/04/24 10:[address]: Barry Talbert DEPT: Surgical Specimen RECD BY: Marisela Cedillo ENTERED: 01/04/24 12:59 SP TYPE: Bowel OTHR DR: Andrea Hamlin Tissues: 1 - BIOPSY BOWEL 2 - BIOPSY BOWEL 3 - BIOPSY BOWEL 4 - BIOPSY BOWEL 5 - BIOPSY BOWEL Procedures: GROSS AND MICRO LEVEL 4 Comments: [id number]
[2024-01-04 11:24] VITALS: BP 109/67; PULSE 62; RESP 16; TEMP 36.7; O2SAT 97
--- NOTE | 2024-01-04 11:35 | W.ANESPOSTOP ---
Postoperative Evaluation Date, Time and Location Date Performed: 01/04/24 Time Performed: 11:35 Patient Location: Day Surgery Unit Vital Signs Most Recent Imported Vital Signs: Most Recent Vital Signs Temp Pulse Resp BP Pulse Ox 36.7 C 62 16 109/67 97 01/04/24 11:24 01/04/24 11:24 01/04/24 11:24 01/04/24 11:24 01/04/24 11:24 Pain Score Most Recent Pain Score: Most Recent Pain Score Pain Level 0 01/04/24 11:24 Assessment Mental Status: Awake (Alert & Oriented to Patient Baseline) Airway and Respiratory Function: Patent airway with normal (patient baseline) respiratory exam Cardiovascular Function: Hemodynamically Stable Hydration Status: Adequately Hydrated Nausea & Vomiting: No Nausea or Vomiting Pain: Pt. Denies Any Pain Peripheral Nerve Block: Patient did not receive a nerve block
[2024-01-04 11:47] VITALS: BP 141/85; PULSE 50; RESP 16; TEMP 36.2; O2SAT 94
== END 2024-01-04 12:00 | disposition home or self-care (01) ==
LOC: SUR 09:06
PROVIDERS: PCP Family Medicine; Visit Provider Surgery
PROC: 0DJD8ZZ Inspection of Lower Intestinal Tract, Via Natural or Artificial Opening Endoscopic (ICD-10-PCS; CPT 45378; principal; 2024-01-04 10:30)
DX: Z12.11 Encounter for screening for malignant neoplasm of colon (principal); D12.4 Benign neoplasm of descending colon; K63.89 Other specified diseases of intestine
CPT/HCPCS: 45380; 88305; J2704

== ENCOUNTER → 2024-03-07 13:03 | Outpatient (BNVA) | payer MEDICARE, SELFPAY | PROVIDERS: PCP Family Medicine; Visit Provider Urology | DX: N52.9 Male erectile dysfunction, unspecified (principal); R97.20 Elevated prostate specific antigen [PSA] | CPT/HCPCS: 99214 ==

== ENCOUNTER → 2024-03-14 14:13 | Outpatient (BNVA) | payer MEDICARE, SELFPAY | PROVIDERS: PCP Family Medicine; Referring Provider Family Medicine; Visit Provider Student in an Organized Health Care Education/Training Program | DX: M16.12 Unilateral primary osteoarthritis, left hip (principal) | CPT/HCPCS: 20611; J1010 ==

== ENCOUNTER 2024-04-16 15:04 | Outpatient (CLI) | payer MEDICARE, SELFPAY ==
--- NOTE | 2024-04-16 13:30 | DI.RAD_ITS ---
Exam(s) XR KNEE LT 4V AP,LAT,ALESSIA,PAT EXAM: XR KNEE LT 4V AP,LAT,ALESSIA,PAT CLINICAL HISTORY: LEFT KNEE PAIN. TECHNIQUE: 2D digital imaging was performed. Three views. COMPARISON: MR MRI - L LOWER EXT WO CONTRAST from 11/22/2016 FINDINGS: BONES: No acute fracture is present. No bony destructive lesion is seen. These a fight at quadriceps insertion on the patella. JOINTS: Lateral patellar subluxation with some widening of the medial and patellofemoral joint space. Mild narrowing of lateral femoral tibial joint space and mild periarticular spurring. No joint eff usion is seen. SOFT TISSUE: Normal. IMPRESSION: Degenerative changes. Mild lateral patellar subluxation. DATA REPOSITORY: RADIATION DOSE DELIVERED:
== END 2024-04-16 15:05 | disposition home or self-care (01) ==
LOC: DIORS 15:04
PROVIDERS: PCP Family Medicine; Referring Provider Family Medicine; Visit Provider Physician Assistant
DX: M17.12 Unilateral primary osteoarthritis, left knee
CPT/HCPCS: 20610; J1010; 73564

== ENCOUNTER 2024-09-12 16:49 | Outpatient (REF) | payer MEDICARE, SELFPAY ==
[2024-09-12 21:31] LABS: Abs Immature Grans 0.04 10^3/uL (0.0-0.06); Absolute Basophil Count 0.06 10^3/uL (0.0-0.2); Absolute Eosinophil Count 0.39 10^3/uL (0.0-0.7); Absolute Lymphocyte Count 1.73 10^3/uL (1.2-3.4); Absolute Monocyte Count 0.43 10^3/uL (0.1-0.8); Absolute Neutrophil Count 3.74 10^3/uL (1.2-6.7); Basophils % 0.9 %; Eosinophils % 6.1 %; HCT 45.3 % (40.0-50.0); HGB 15.6 g/dL (13.5-17.5); Immature Grans % 0.6 %; Lymphocytes % 27.1 %; MCH 32.7 pg (27.0-33.0); MCHC 34.4 % (32.0-36.0); MCV 95 fL (80-95); MPV 10.6 fL (8.0-11.0); Monocytes % 6.7 %; Neutrophils % 58.6 %; Platelet Count 201 10^3/uL (130-400); RBC 4.77 10^6/uL (4.36-5.78); RDW 11.5 % (11.8-14.1); RDW-SD 40.1 fL; WBC 6.39 10^3/uL (4.4-10.8)
[2024-09-12 21:56] LABS: ALT 19 U/L (16-63); AST 9 U/L (15-37); Albumin 3.8 g/dL (3.4-5.0); Alkaline Phosphatase 58 U/L (46-116); Anion Gap 8.1 mmol/L (3-11); BUN 22 mg/dL (7-18); Bilirubin, Total 0.68 mg/dL (0.2-1.0); CO2 27.9 mmol/L (21.0-32.0); CREATININE 1.1 mg/dL (0.70-1.30); Calcium 8.9 mg/dL (8.5-10.1); Chloride 107 mmol/L (98-107); Estimated GFR 73.12 (mL/min/1.73m2); Glucose 123 mg/dL (74-106); Potassium 3.7 mmol/L (3.5-5.1); Sodium 143 mmol/L (136-145); Total Protein 6.7 g/dL (6.4-8.2)
[2024-09-13 18:42] LABS: PSA, Diagnostic 3.7 ng/mL (<=4.5)
== END 2024-09-12 16:50 | disposition home or self-care (01) ==
LOC: NCHCN 16:49
PROVIDERS: PCP Family Medicine; Visit Provider Family Medicine
DX: I10 Essential (primary) hypertension (principal)
CPT/HCPCS: 80053; 84153; 85025

== ENCOUNTER 2024-10-29 15:56 | Outpatient (REF) | payer MEDICARE, SELFPAY ==
[2024-10-29 15:33] LABS: Anion Gap 4.8 mmol/L (3-11); BUN 24 mg/dL (7-18); CO2 33.2 mmol/L (21.0-32.0); CREATININE 1.3 mg/dL (0.70-1.30); Calcium 9.4 mg/dL (8.5-10.1); Chloride 107 mmol/L (98-107); Estimated GFR 59.47 (mL/min/1.73m2); Glucose 134 mg/dL (74-106); Potassium 3.6 mmol/L (3.5-5.1); Sodium 145 mmol/L (136-145)
[2024-10-29 15:45] LABS: Hemoglobin A1C 5.2 % (<5.7)
== END 2024-10-29 15:57 | disposition home or self-care (01) ==
LOC: NCHCN 15:56
PROVIDERS: PCP Family Medicine; Visit Provider Family Medicine
DX: Z00.00 Encounter for general adult medical examination without abnormal findings (principal); I10 Essential (primary) hypertension
CPT/HCPCS: 80048; 83036

== ENCOUNTER → 2025-03-07 09:57 | Outpatient (BNVA) | payer MEDICARE, SELFPAY | PROVIDERS: PCP Family Medicine; Visit Provider Urology | DX: R97.20 Elevated prostate specific antigen [PSA] (principal); N52.9 Male erectile dysfunction, unspecified | CPT/HCPCS: 99213 ==

== ENCOUNTER 2025-08-28 18:47 | Outpatient (REF) | payer MEDICARE, SELFPAY ==
[2025-08-28 20:14] LABS: Glucose Negative (Negative)
== END 2025-08-28 18:48 | disposition home or self-care (01) ==
LOC: NCHCN 18:47
PROVIDERS: PCP Family Medicine; Visit Provider Family Medicine
DX: N40.1 Benign prostatic hyperplasia with lower urinary tract symptoms (principal)
CPT/HCPCS: 81003

== ENCOUNTER → 2025-09-02 07:59 | Outpatient (BNVA) | payer MEDICARE, SELFPAY | PROVIDERS: PCP Family Medicine; Referring Provider Family Medicine; Visit Provider Urology | DX: N40.1 Benign prostatic hyperplasia with lower urinary tract symptoms (principal); N13.8 Other obstructive and reflux uropathy; R35.1 Nocturia; R35.0 Frequency of micturition; R33.9 Retention of urine, unspecified | CPT/HCPCS: 76775 ==